=== PATIENT | female | born 1975 | race Caucasian/White ===

== ENCOUNTER 2019-02-28 12:59 | Emergency (ER) | payer OTHER ==
[2019-02-28] MEDS ORDERED: Fluorescein 0.6 MG Ophth Strip EYEBOTH ONE (13:35)
[2019-02-28] MEDS ORDERED: Ketorolac 0.5% Ophth Soln 5 ML Bottle EYERT ONE (13:41)
[2019-02-28] MEDS ORDERED: Ciprofloxacin 0.3% Ophth Soln 5 ML Bottle EYERT ONE (13:41)
--- NOTE | 2019-02-28 13:48 | EDM.PDOC ---
ED HPI GENERAL MEDICAL PROBLEM - General Chief Complaint: Eye Problems Stated Complaint: EYE PAIN Time Seen by Provider: 02/28/19 13:30 Source of Information: Reports: Patient, Family, Provider, RN, RN Notes Reviewed History Limitations: Reports: No Limitations - History of Present Illness INITIAL COMMENTS - FREE TEXT/NARRATIVE: Ewelian Little is a 44 yo female who presents to our ED with right eye pain. She reports she woke up this morning with bilateral eye pain. Her left eye did resolve rapidly and her right eye has been painful since. She reports it will not stop watering. She has tried her contacts however this did not help and she kept them out. She did try GenTeal drops which helped for a bit but not very long. She's not tried anything else. She reports they've been traveling from [place] and she has not been grinding or doing any sort of activity that would put her at higher risk for having anything landed her eye. She reports the eyes very painful. She did try warm compress which did not help. She denies any prior eye injury were eye problems, but she does wear contacts. She reports she mostly wears contacts on the weekends and they're monthly type contacts. She did wear her contacts yesterday. Denies any headache. No recent trauma. She does have bilateral runny nose. Her PCP is not from the area. Right Eye Pain Score (Numeric/FACES): 4 - Related Data Allergies Allergy/AdvReac Type Severity Reaction Status Date / Time Sulfa (Sulfonamide Allergy Rash Verified 02/28/19 13:05 Antibiotics) Home Meds: Home Meds . [No Known Home Meds] 02/28/19 [History] Past Medical History - Past Surgical History HEENT Surgical History: Reports: Tonsillectomy Social & Family History - Tobacco Use Smoking Status *Q: Never Smoker - Caffeine Use Caffeine Use: Reports: Coffee - Recreational Drug Use Recreational Drug Use: No ED ROS GENERAL - Review of Systems Review Of Systems: See Below Constitutional: Denies: Fever, Chills, Malaise, Weakness HEENT: Reports: Contact Lenses, Eye Discharge (watery), Eye Pain, Glasses, Rhinitis, Vision Change (very sensitive to light ). Denies: Ear Discharge, Ear Pain, Nosebleed, Nose Pain, Sinus Problem, Throat Pain, Throat Swelling Respiratory: Reports: No Symptoms. Denies: Shortness of Breath, Wheezing, Cough Cardiovascular: Reports: No Symptoms. Denies: Chest Pain, Edema ED EXAM GENERAL W FULL EYE - Physical Exam Exam: See Below Exam Limited By: No Limitations General Appearance: Alert, WD/WN, Mild Distress Eye Exam: Right Eye: Conjunctival Injection (Mild ), Corneal Abrasion (4mm from limbus) Eyelids: Bilateral: Normal Appearance Conjunctiva & Sclera: Right: Discharge (watery ), Injected (mild ) Cornea Exam: Bilateral: Normal Appearance Ears: Normal External Exam, Normal Canal, Hearing Grossly Normal, Normal TMs Nose: Normal Inspection, Normal Mucosa, No Blood Throat/Mouth: Normal Inspection, Normal Lips, Normal Teeth, Normal Gums, Normal Oropharynx, Normal Voice, No Airway Compromise Head: Atraumatic, Normocephalic Neck: Normal Inspection, Supple Respiratory/Chest: No Respiratory Distress, Lungs Clear, Normal Breath Sounds, No Accessory Muscle Use, Chest Non-Tender Cardiovascular: Normal Peripheral Pulses, Regular Rate, Rhythm, No Edema, No Gallop, No JVD, No Murmur, No Rub Course - Vital Signs Last Recorded V/S: Last Vital Signs Temp 98.6 F 02/28/19 13:06 Pulse 93 02/28/19 13:06 Resp 15 02/28/19 13:06 BP 133/92 H 02/28/19 13:06 Pulse Ox 100 02/28/19 13:06 - Orders/Labs/Meds Meds: Medications Discontinued Medications Generic Name Dose Route Start Last Admin Trade Name Jurgenq PRN Reason Stop Dose Admin Ciprofloxacin 2.5 ml 02/28/19 13:41 Ciloxan 0.3% Ophth Soln EYERT 02/28/19 13:42 ONETIME ONE Fluorescein Sodium 0.6 mg 02/28/19 13:35 Ful-Blanca EYEBOTH 02/28/19 13:36 ONETIME ONE Ketorolac Tromethamine 2.5 ml 02/28/19 13:41 Acular 0.5% Ophth Soln EYERT 02/28/19 13:42 ONETIME ONE - Re-Assessments/Exams Free Text/Narrative Re-Assessment/Exam: Dr. Summers in room with me to help examine eyes. Corneal abrasion is noted with the assistance of fluorescence stain. 02/28/19 13:56 Departure - Departure Time of Disposition: 13:56 Disposition: Home, Self-Care 01 Condition: Good Clinical Impression: Corneal abrasion Qualifiers: Encounter type: initial encounter Laterality: right Qualified Code(s): S05.01XA - Injury of conjunctiva and corneal abrasion without foreign body, right eye, initial encounter - Discharge Information *PRESCRIPTION DRUG MONITORING PROGRAM REVIEWED*: No *COPY OF PRESCRIPTION DRUG MONITORING REPORT IN PATIENT MEGAN: No Referrals: PCP,Not In Area [Primary Care Provider] - Additional Instructions: You were seen today for a corneal abrasion to right eye. He was treated with Toradol and Cipro drops. You may take 1 Toradol drop in your right eye every 6 hours as needed for pain over the next 24 hours. You should also apply to ciprofloxacin drops into right eye 3 times a day for 2 days. You may consider wearing an eye patch on your right eye today and tomorrow as it may help your symptoms. Your eye will be tender and sensitive to light and sunglasses are recommended. Should symptoms not resolve within 2 days he should be seen by an email production specialist. Otherwise if symptoms worsen or return you may return to the emergency room. Do not wear your contacts for 3 days. Ensure there are no tears or irregularities in your contacts.
== END 2019-02-28 14:03 | disposition home or self-care (01) ==
LOC: JD.ED 12:59
DX: S05.01XA Injury of conjunctiva and corneal abrasion without foreign body, right eye, initial encounter (principal); Z88.2 Allergy status to sulfonamides; X58.XXXA Exposure to other specified factors, initial encounter
CPT/HCPCS: 99283; A9270